=== PATIENT | female | born 1950 | race African-American/Black ===

== ENCOUNTER 2024-01-07 16:44 | Emergency (ER) | payer MEDICARE, MEDICAID ==
[~2024-01-07] VITALS: Ht 165.1 cm; Wt 64.0 kg
[~2024-01-07 16:44] MED LIST: ATROPINE SULFATE 1MG/10ML SYR ONE; hydrochlorothiazide; lisinopril; metformin
[2024-01-07 16:46] VITALS: TEMP 95.9
[2024-01-07 16:50] VITALS: BP 96/78; PULSE 178; RESP 12; O2SAT 100
== END 2024-01-07 19:25 ==
LOC: ER 16:44
DX: I46.9 Cardiac arrest, cause unspecified (principal); I48.91 Unspecified atrial fibrillation
CPT/HCPCS: 99291; 92950; 31500; 82962; J0461; J3490 ×3; J3475